=== PATIENT | male | born 1960 | race Caucasian/White ===

== ENCOUNTER 2021-02-19 15:36 | Observation (INO) | payer OTHER ==
[~2021-02-19] VITALS: Wt 97.5 kg
--- NOTE | ~2021-02-19 | H ---
[address] [address] HISTORY AND PHYSICAL Name: JAZMINESAMANTHAWILD Room: [address] Moiz Huizar#: [id number] Admission: 02/19/21 Attend Phys: Denzel Chinchilla MD Discharge: 02/20/21 Date of : 58 Report #: [id number] THIS REPORT FOR: cc: Jasbir Byrd MD, Bruce D. MD [facility],Medical Records Staff ~ Please refer to the History and Physical performed in the physician's office. By: 0700Medical Records Staff [facility] /DIVINE
[~2021-02-19 15:36] MED LIST: ASPIRIN EC81 M1 PO; GLUCOTROL5 MG; LISINOPRIL40 MG PO; MULTIVITAMINS PO; NORVASC10 MG PO; XANAX 0.5 MG0.5 MG PO; XANAX XR1 MG PO; ZOLOFT100 MG PO
[2021-02-19 15:43] VITALS: BP 177/78
[2021-02-19] MEDS ORDERED: LIPITOR 40 MG T40 M1 PO (15:48)
[2021-02-19] MEDS ORDERED: VITAMIN D-40010 MCG PO (15:48)
[2021-02-19] MEDS ORDERED: METFORMIN HCL500 M3 PO (15:48)
[2021-02-19] MEDS ORDERED: FENOFIBRATE150 MG PO (15:48)
[2021-02-19] MEDS ORDERED: JARDIANCE25 MG PO (15:48)
[2021-02-19] MEDS ORDERED: KLOR-CON 1010 MEQ PO (15:48)
[2021-02-19] MEDS ORDERED: JANUVIA100 MG PO (15:49)
[2021-02-19 15:55] LABS: ABSOLUTE BASOPHILS 0.1 thou/uL (0.0-0.2); ABSOLUTE EOSINOPHILS 0.1 thou/uL (0.0-0.7); ABSOLUTE LYMPHOCYTES 2.6 thou/uL (0.8-5.3); ABSOLUTE MONOCYTES 0.7 thou/uL (0.0-1.2); ABSOLUTE NEUTROPHILS 5.6 thou/uL (1.6-8.1); BASOPHILS 0.6 %; EOSINOPHILS 1.6 %; HEMATOCRIT 44.6 % (42.0-52.0); HEMOGLOBIN 14.8 gm/dL (14.0-18.0); MCH 30.4 pg (26.0-34.0); MCHC 33.3 g/dL (28.0-37.0); MCV 91.4 fL (80.0-100.0); MONOCYTES 7.4 %; MPV 8.4 fl. (7.2-11.1); NUCLEATED RBCS 0 /100WBC; PLATELET COUNT* 288 thou/uL (150-400); POLYS 61.4 %; RBC 4.88 mil/uL (4.50-6.00); RDW-CV 14.1 % (10.5-14.5); WBC 9.1 thou/uL (4.0-11.0)
[2021-02-19 16:14] LABS: CREATININE 1.1 mg/dL (0.6-1.3); POTASSIUM 4.8 mmol/L (3.5-5.1)
[2021-02-19 16:25] VITALS: BP 180/72
[2021-02-19 16:25] LABS: ALBUMIN 4.3 g/dL (3.4-5.0); MAGNESIUM 2.4 mg/dL (1.8-2.4); TOTAL BILIRUBIN 0.8 mg/dL (<0.1-1.0); TOTAL PROTEIN 7.8 g/dL (6.4-8.2)
[2021-02-19 18:47] VITALS: BP 145/70
[2021-02-20] VITALS: BP 152/84
[2021-02-20 04:08] VITALS: BP 147/85
[2021-02-20 08:00] VITALS: BP 133/81
[2021-02-20 10:28] VITALS: BP 133/81
--- NOTE | 2021-02-20 13:49 | EKG ---
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 : 1960 Requested By: Wesley Alcazar Order Number: [id number] MD: Wild Slaughter Measurements Intervals [place] Rate: 40 P: 0 IN: QRS: 90 QRSD: 153 T: -8 QT: 531 QTc: 434 Interpretive Statements Sinus rhythm with complete AV block with wide QRS complex escape mechanism RBBB and LPFB Baseline wander in lead(s) I,III,aVL,V4,V5 Compared to ECG 10/30/2011 23:20:10 AV block, complete (third-degree) now present Left posterior fascicular block now present Right bundle-branch block now present Electronically Signed On 02-20-2021 13:48:57 PLANT WIRE CHIEF by Wild Slaughter [email or web address] <ELECTRONICALLY SIGNED> By: Wild Slaughter MD, [facility] 02/20/21 1348 1538 1538 Wild Slaughter MD, [facility] /EPI
--- NOTE | 2021-02-20 13:57 | EKG ---
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: : 1960 Requested By: Denzel Chinchilla Order Number: [id number] Shameka MD: Wild Slaughter Measurements Intervals [place] Rate: 81 P: 69 MA: 225 QRS: 265 QRSD: 157 T: 80 QT: 473 QTc: 549 Interpretive Statements Atrial-sensed ventricular-paced complexes No further analysis attempted due to paced rhythm Compared to ECG 10/30/2011 23:20:10 Paced rhythm is noted Electronically Signed On 02-20-2021 13:57:44 STATOR W[employer]ER by Wild Slaughter [email or web address] <ELECTRONICALLY SIGNED> By: Wild Slaughter MD, [facility] 02/20/21 1357 1032 1032 Wild Slaughter MD, [facility] /EPI
--- NOTE | 2021-02-20 13:58 | EKG ---
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: : 1960 Requested By: Denzel Chinchilla Order Number: [id number] Reading MD: Wild Slaughter Measurements Intervals [place] Rate: 89 P: 75 [place]: 212 QRS: 263 QRSD: 160 T: 61 QT: 469 QTc: 571 Interpretive Statements A-V dual-paced complexes with some AV sequential pacing No further analysis attempted due to paced rhythm Compared to ECG 02/20/2021 10:32:16 Paced rhythm persists; ventricular ectopy is no longer noted Electronically Signed On 02-20-2021 13:58:34 WAXED BAG MACHINE OPERATOR by Wild Slaughter [email or web address] <ELECTRONICALLY SIGNED> By: Wild Slaughter MD, [facility] 02/20/21 1358 1034 1034 Wild Slaughter MD, [facility] /EPI
--- NOTE | 2021-02-25 11:41 | D ---
[facility] [address] [place] [address] DISCHARGE SUMMARY Name: WILD TOVAR Room: [address] Moiz Huizar#: [id number] Admission: 02/19/21 Attend Phys: Denzel Chinchilla MD Discharge: 02/20/21 Date of : 58 Report #: [id number] THIS REPORT FOR: cc: Jasbir Byrd MD, Bruce D. MD Liston, Michael J. MD [facility] ~ DATE OF DISCHARGE: 02/20/2021 DISCHARGE DIAGNOSES: 1. Complete heart block. 2. Coronary artery disease with remote history of bypass surgery. 3. Hypertension. 4. Hyperlipidemia. 5. Type 2 diabetes mellitus. PROCEDURES DURING HOSPITALIZATION: 1. Dual chamber pacemaker placement with atrial and ventricular lead placement. 2. Telemetry monitoring. HOSPITAL COURSE: The patient was admitted through the Emergency Room yesterday with complete heart block. This was new in onset. His symptoms had been progressive over the last month or so. The patient denied syncope. He was hemodynamically stable. The patient was found to be in complete heart block. Heart rates were in the low 30s and upper 20s. The patient underwent dual chamber pacemaker placement without complication. The patient was observed overnight and remained stable on telemetry. Currently, the patient has atrial sensing and ventricular pacing on telemetry. Post-pacemaker placement, chest x-ray shows pacemaker in place with good positioning of the leads. There was no evidence of pneumothorax. DISCHARGE MEDICATIONS: 1. Lisinopril 40 mg daily. 2. Amlodipine 10 mg daily. 3. Multivitamin 1 tablet daily. 4. Zoloft 100 mg half a tablet as directed. 5. Alprazolam 0.5 mg p.r.n. 6. Aspirin 81 mg daily. 7. Glipizide 5 mg daily. 8. Jardiance 25 mg daily. 9. Metformin 500 mg daily. 10. Fenofibrate 150 mg daily. 11. Atorvastatin 40 mg daily. 12. Vitamin D3 10 mcg daily. 13. Potassium chloride 10 mEq daily. 14. Januvia [address] [place] [address] DISCHARGE SUMMARY Name: WILD TOVAR Room: [address] M.R.#: [id number] Admission: 02/19/21 Attend Phys: Denzel Chinchilla MD Discharge: 02/20/21 Date of : 58 Report #: [id number] DISPOSITION: The patient is to follow up with a site check in one week and pacemaker interrogation in 4-6 weeks. <ELECTRONICALLY SIGNED> By: Denzel Chinchilla MD, [facility] 02/25/21 1141 0813 [id number] Chinchilla MD, FACC /nt
--- NOTE | 2021-02-28 11:05 | CARD ---
[place] [address] CARDIAC CATH REPORT Name: WILD TOVAR Room: [address] Gaye#: [id number] Admission: 02/19/21 Attend Phys: Denzel Chinchilla MD Discharge: 02/20/21 Date of : 58 Report #: [id number] THIS REPORT FOR: cc: Jasbir Byrd MD, Bruce D. MD Liston, Michael J. MD [facility] ~ APPROVED REPORT Study performed: 02/19/2021 16:08:34 Patient Status: ED Room #: Event Personnel: Denzel Chinchilla MD; Traci Cannon, RTR Monitor; Ana Jordan, JOHN Monitor; Gabbi Bourgeois, JOHN; Sue Torres, R Scrub Exam: Insertion of Dual Chamber Permanent Pacemaker Indications: Complete heart block The patient is a 60 year-old male with a history of Complete heart block. Conscious Sedation Start time: 1708 End Time: 1805 Fentanyl 25.0 mcg Versed 1.0 mg Implanted Devices: Eva Watson DR MRI SureScan, Serial # [id number]; CapSureFix Novus MRI SureScan 5076-52cm (Atrial lead); CapSureFix Novus MRI SureScan 5076-58cm (Ventricular lead). Procedure The patient underwent informed consent. We discussed the details of the procedure including the risks, which include, but not limited to bleeding, infection, vascular damage, cardiac perforation, and pneumothorax. He understood these risks and was willing to proceed. As such, he was brought to the EP/Cardiac Catheterization laboratory in a fasting and sedated state and prepped and draped in a sterile fashion, received IV antibiotics prior to initiation of the procedure and a venogram was performed showing patency of the left axillary vein. The patient underwent conscious sedation, with no related complications. During this case, Fluoroscopy and no contrast were used for imaging. The subclavian region was infiltrated with 2% Lidocaine with Epinephrine subcutaneous anesthesia. [place] [address] CARDIAC CATH REPORT Name: WILD TOVAR Room: [address] Moiz Huizar#: [id number] Admission: 02/19/21 Attend Phys: Denzel Chinchilla MD Discharge: 02/20/21 Date of : 58 Report #: [id number] in the upper chest cavity. The subcutaneous pocket was formed via blunt dissection. Percutaneous venous access was achieved and an introducer sheath was inserted into the left Subclavian vein. Through the introducer sheaths the atrial and ventricular lead wires were positioned in the right atrial appendage and right ventricular apex respectively. The patient was prepped and draped in sterile fashion. Local anesthesia was achieved with 1% lidocaine. Next after initial incision was made a device pocket was formed over the left pectoralis muscle using electrocautery and blunt dissection. Next using a micropuncture kit the left subclavian vein was accessed and ultimately a safety J guidewire advanced to the level of right atrium under fluoroscopic guidance. The wire was externally fixed with a Liliya forcep. The micropuncture kit was utilized a second time to access the subclavian vein again and a second safety J guidewire advanced to the right atrium under fluoroscopic guidance. Next a 7 Armenian tear-away introducer was advanced over the free guidewire. The dilator and guidewire were removed and an RV lead advanced to a secure position within the right ventricular apex. Thresholds were checked and deemed to be satisfactory. The lead was actively fixed. There was no diaphragmatic stimulation with maximum output pacing. The tear-away introducer was removed. Next a second 7 Armenian tear-away introducer was advanced over the remaining guidewire. The dilator and guidewire were removed and an atrial lead advanced to a secure position within the right atrial appendage. The lead was actively fixed. Thresholds were checked and deemed to be satisfactory. There was no phrenic nerve stimulation with maximum output pacing. Next the atrial and ventricular leads were then secured within the device pocket using the designated cuff and 2-0 silk suture. The pocket was then flushed with antibiotic solution. Next a dual-chamber pacing generator was attached to the atrial and ventricular lead. The redundant lead and generator were placed within the device pocket. The deep tissues were closed utilizing interrupted stitches of 2-0 Vicryl. The skin incision was then closed with a single subcuticular stitch of 4-0 Vicryl. Several Steri-Strips were placed across the incision and a sterile Telfa dressing covered with a Tegaderm. The patient tolerated the procedure well without complication. Electrode Parameters P Wave: 2.1 mV R Wave: 9.5 mV Atrial Threshold: 0.5 V at 0.40 ms Ventricular Threshold: 0.75 V at 0.40 ms Atrial Resistance: 570 ohms Ventricular Resistance: 9[address] [place] [address] CARDIAC CATH REPORT Name: WILD TOVAR Room: [address] AlexisSaima#: [id number] Admission: 02/19/21 Attend Phys: Denzel Chinchilla MD Discharge: 02/20/21 Date of : 58 Report #: [id number] Complications The patient tolerated the procedure well and there were no complications associated with the procedure. Findings Specimens Removed: No Estimated Blood Loss: 5ml Conclusion 1. Complete heart block. 2. Successful placement of a dual-chamber pacemaker with atrial and ventricular lead placement. Recommendations 1. Follow-up site check in 1 week. 2. Follow-up device interrogation in 1 to 2 months. <ELECTRONICALLY SIGNED> By: Denzel Chinchilla MD, FACC 02/28/21 1105 1105 [id number] Chinchilla MD, FACC /INF
== END 2021-02-20 12:30 | disposition home or self-care (01) ==
LOC: M.ERS 15:36 → M.TBA-CV 15:45 → M.ERS 15:45 → M.CL 15:45 → M.2W 17:00
PROVIDERS: Family Medicine; ADMIT Internal Medicine Cardiovascular Disease; ATTEND Internal Medicine Cardiovascular Disease
DX: I44.2 Atrioventricular block, complete (principal); I10 Essential (primary) hypertension; E78.5 Hyperlipidemia, unspecified; E11.9 Type 2 diabetes mellitus without complications; I25.10 Atherosclerotic heart disease of native coronary artery without angina pectoris; Z20.822 Contact with and (suspected) exposure to COVID-19; Z79.899 Other long term (current) drug therapy; Z79.01 Long term (current) use of anticoagulants